=== PATIENT | female | born 1995 | race Caucasian/White ===

== ENCOUNTER 2017-03-19 17:41 | Emergency (ER) | payer OTHER ==
[~2017-03-19] VITALS: Ht 170.2 cm; Wt 77.3 kg
[2017-03-19 17:51] VITALS: BP 107/74; PULSE 106; RESP 20; O2SAT 98
--- NOTE | 2017-03-19 19:51 | ED.REPORT ---
HPI-General Illness Date of Service Mar 19, 2017 ED Provider: Doc,Ed MD The patient is a 21 year old female with history of migraines who presents to the emergency department complaining of right ankle swelling and pain. The patient was stung by a bee yesterday and noticed some swelling initially but the swelling became much worse this evening. She does not have a known allergy to bees. She denies any known injury or trauma. She denies fever, chills, chest pain, shortness of breath or headaches. She does not have a primary care provider. Nursing Notes Stated Complaint: SWOLLEN ANKLE,RASH ON ANKLE Chief Complaint: Skin Rash/Abscess Nursing Notes Reviewed: Yes Allergies: Coded Allergies: No Known Allergies (Unverified , 03/19/17) General Time Seen by MD: 19:50 Chief Complaint Other (ankle swelling and rash) Hx Obtained From: Patient Arrived By: Walk-in Sudden in Onset?: Yes Onset Occurred: 1 - 4 hours ago Context of Onset: Other (bee sting) Symptom Duration: Since onset Location: No: Ankle right Quality: Painful Severity: Current: Mild Severity: Maximum: Moderate Recent Healthcare: No recent doctor visit, No recent hospitalization Similar Sx Previous: No Past Medical History Past Medical History Notes: No PCP Past Medical History Chronic migraines Past Surgical History Reports: Tonsillectomy Family History Noncontributory Smoking History Unknown if Ever Smoker Social History Other Social History: Good social support, Local resident Ambulatory Status Independent Review of Systems Full Review of Systems Constitutional: Denies: Chills, Fever Respiratory: Denies: Shortness of breath Cardiovascular: Denies: Chest pain Musculoskeletal: Reports: Joint pain, Joint swelling Skin: Reports Rash, Reports Swelling Neurologic: Denies: Headache Complete sys rev & neg: except as marked. Physical Exam Nursing note and vitals reviewed. Constitutional: Well-developed, well-nourished. Not diaphoretic. Head: Normocephalic and atraumatic. Mouth/Throat: Oropharynx is clear and moist. No oropharyngeal exudate. Eyes: EOM are normal. Pupils are equal, round, and reactive to light. Neck: Supple, no tracheal deviation. Cardiovascular: Normal rate, regular rhythm. Equal and intact distal pulses throughout. Pulmonary/Chest: Effort normal and breath sounds normal. No respiratory distress. Abdominal: Soft. No distension. There is no tenderness, rebound, or guarding. Bowel sounds present. Musculoskeletal: Swelling to the medial aspect of her right ankle. Good DP pulses. Motor and sensory intact. Neurological: AOx3. Grossly nonfocal exam. Strength and sensation intact and equal to bilateral upper and lower extremities. Skin: Warm and dry, no rashes or pallor appreciated. Psychiatric: Appropriate mood and affect. Behavior appears normal. Vital Signs Vital Signs Date Time Temp Pulse Resp B/P Pulse Ox O2 Delivery O2 Flow Rate FiO2 03/19/17 22:03 36.5 80 16 114/68 100 Room Air 03/19/17 17:51 36.8 106 20 107/74 98 Room Air Initial VS: Reviewed Re-Eval/Medical Decision Med Decision/Clinical Course 21-year-old female with ankle swelling. No systemic symptoms. No known history of trauma, no bony tenderness. Unclear if this may be related to the incident yesterday when she was stung by a bee, or if this is separate and she has some developing cellulitis. She has no pain with range of motion at the joint. Given Benadryl, Decadron, and plan to discharge with a prescription for Keflex. I instructed the patient that if she did not improve by tomorrow, she should be reevaluated either here or by her primary physician. She was agreeable to this plan. Careful return precautions were discussed. Source of Hx: Old records Time of Eval: 21:34 Re-Evaluation/Progress Note: Discussed exam findings and plan for discharge. All questions were addressed. Counseled Regarding: Diagnosis, Need for follow-up, When/why to return to ED Discharge & Departure Primary Impression: Right ankle swelling Disposition: Home Discharge Condition All VS Reviewed: Yes Condition: Stable Patient Instructions: General Allergic Reaction (ED) Additional Instructions: Thank you for entrusting us with your care today. The swelling may be caused from an allergic reaction. We have prescribed you an antibiotic called Keflex. Make sure to take this as prescribed. Use the EpiPen if you are having trouble breathing or swallowing. You will need to be evaluated if you use the EpiPen. You should followup with a primary care provider next week. We have given you a referral to the residency clinic. Return to the emergency department for difficulty breathing or swallowing, or any other new or concerning symptoms. Referrals: [facility] Scribe Attestation Portions of this note were transcribed by Shahnaz Wallis. Dr. Josette Pedraza personally performed the history, physical exam and medical decision-making; I reviewed and confirmed the accuracy of the information in the transcribed note. Signed by: Carito Gonzales, 03/19/2017 at 2200. Sherman Finch MD Mar 19, 2017 19:51 hSahnaz Wallis Mar 19, 2017 21:22
[2017-03-19] MEDS ORDERED: diphenhydrAMINE 25 mg Capsule PO ONE (21:40)
[2017-03-19] MEDS ORDERED: Dexamethasone 10 mg/mL Inj IM ONE (21:40)
[2017-03-19 22:03] VITALS: BP 114/68; PULSE 80; RESP 16; O2SAT 100
[2017-03-20] MEDS ORDERED: _Cephalexin 500 mg Capsule PO SCH (08:30)
[2017-03-20] MEDS ORDERED: _Cephalexin Suspension 250 mg/5 mL PO SCH (08:30)
== END 2017-03-19 22:39 | disposition home or self-care (01) ==
LOC: SED 17:41
DX: R22.41 Localized swelling, mass and lump, right lower limb (principal); W57.XXXA Bitten or stung by nonvenomous insect and other nonvenomous arthropods, initial encounter; Y92.9 Unspecified place or not applicable; Y93.89 Activity, other specified; Y99.8 Other external cause status; G43.909 Migraine, unspecified, not intractable, without status migrainosus
CPT/HCPCS: 96372; 99283; J1100